=== PATIENT | male | born 1965 | race Caucasian/White ===

== ENCOUNTER 2016-07-06 08:48 | Emergency (ER) | payer OTHER ==
[~2016-07-06] VITALS: Ht 188 cm; Wt 107.2 kg
[~2016-07-06 08:48] MED LIST: ASCO10003 PO; CHOL100027 PO; MULTTAB58 PO; OXYC-643 PO; VITATAB11 PO
[2016-07-06 08:51] VITALS: TEMP 37; Ht 188 cm; Wt 107.2 kg
[2016-07-06] MEDS ORDERED: DIPHTHERIA/TETANUS/PERTUSSIS 0.5 ML SYR/VIAL IM. ONE (09:30)
--- NOTE | 2016-07-06 09:42 | DIAGNOSTIC IMAGING REPORT ---
RIGHT KNEE 3 VIEWS CLINICAL HISTORY: Right knee injury with joint effusion. COMPARISON: None FINDINGS: There is apparent depression of the lateral tibial plateau. This is probably artifactual. A large right knee joint effusion is noted. No lipohemarthrosis is identified. Joint spaces are preserved. No definite fracture is identified. IMPRESSION: Large right knee joint effusion. Apparent depression of the lateral tibial plateau is probably artifactual although a CT of the right knee could be obtained to exclude a fracture. Electronically signed by: Robi Stevenson M.D. 07/06/2016 9:41 AM Dictated Date/Time: 07/06/2016 9:39 AM
--- NOTE | 2016-07-06 10:18 | DIAGNOSTIC IMAGING REPORT ---
CT OF THE RIGHT KNEE WITHOUT CONTRAST CT DOSE: 276.18 mGy.cm CLINICAL HISTORY: Right knee pain following twisting injury. Possible tibial plateau fracture on radiographs. TECHNIQUE: Axial images of the right knee were obtained without IV contrast. Sagittal and coronal reconstructions were viewed. COMPARISON STUDY: Right knee radiographs July 06, 2016. FINDINGS: There is a large right knee joint effusion with suspected tiny lipohemarthrosis. There is an acute minimally displaced, minimally depressed fracture of the anterior aspect of the lateral tibial plateau. There is approximately 3 mm of depression. No additional fractures are identified. Joint spaces are preserved. There is minimal osteophytosis. Menisci and ligaments are suboptimally assessed by CT. IMPRESSION: 1. Acute minimally displaced, minimally depressed (3 mm) fracture of the anterior aspect of the lateral tibial plateau. 2. Large right knee joint effusion with tiny lipohemarthrosis. Electronically signed by: Robi Stevenson M.D. 07/06/2016 10:17 AM Dictated Date/Time: 07/06/2016 10:10 AM
[2016-07-06] MEDS ORDERED: OXYC1TAB3 PO (11:04)
[2016-07-06 11:23] VITALS: BP 144/88; PULSE 83; O2SAT 97
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
== END 2016-07-06 11:33 | disposition home or self-care (01) ==
LOC: C.EDB 08:49 → C.EDA 11:33
DX: S82.141A Displaced bicondylar fracture of right tibia, initial encounter for closed fracture (principal); T24.021A Burn of unspecified degree of right knee, initial encounter; T23.211A Burn of second degree of right thumb (nail), initial encounter; T23.171A Burn of first degree of right wrist, initial encounter; T22.112A Burn of first degree of left forearm, initial encounter; T23.102A Burn of first degree of left hand, unspecified site, initial encounter; T20.16XA Burn of first degree of forehead and cheek, initial encounter; X12.XXXA Contact with other hot fluids, initial encounter; X50.9XXA Other and unspecified overexertion or strenuous movements or postures, initial encounter; Y99.0 Civilian activity done for income or pay; M25.462 Effusion, left knee; F17.200 Nicotine dependence, unspecified, uncomplicated; Z23 Encounter for immunization

== ENCOUNTER → 2016-07-17 | Outpatient (CLI) | payer OTHER ==
[~2016-07-17] MED LIST changes: -OXYC-643 PO; +OXYC1TAB3 PO
--- NOTE | 2016-07-17 14:22 | DIAGNOSTIC IMAGING REPORT ---
RIGHT KNEE 4 VIEWS CLINICAL HISTORY: Follow-up tibial plateau fracture. FINDINGS: AP, internal rotated, externally rotated, and crosstable lateral views the right knee are compared to study dated 07/06/2016. Correlation is made with CT scan of the knee dated 07/06/2016. The skeletal structures are well mineralized. There is cortical irregularity and mild step-off identified along the peripheral aspect of the lateral tibial plateau, best seen on the externally rotated view. This likely corresponds to the lateral tibial plateau fracture seen on the recent CT scan. No discrete fracture line is identified. No new fracture is seen. There is only mild joint space narrowing, greatest at the patellofemoral articulation. A joint effusion has decreased in size from previous. The overlying soft tissues are normal as imaged. IMPRESSION: 1. Mild cortical irregularity along the lateral tibial plateau likely represents the subtle fracture seen on the recent CT scan. No discrete fracture line is identified on today's examination. 2. A joint effusion has decreased in size from previous. Electronically signed by: Luis M Dietrich M.D. 07/17/2016 2:21 PM Dictated Date/Time: 07/17/2016 2:12 PM
== END | disposition home or self-care (01) ==
LOC: C.RDSM 13:45
PROVIDERS: ATTEND Family Medicine
DX: T14.8 Other injury of unspecified body region (principal); X58.XXXA Exposure to other specified factors, initial encounter

== ENCOUNTER → 2016-08-14 | Outpatient (CLI) | payer OTHER ==
--- NOTE | 2016-08-14 13:11 | DIAGNOSTIC IMAGING REPORT ---
RIGHT KNEE 4 OR MORE CLINICAL HISTORY: F/U RIGHT TIBIAL PLATEAU FX Right COMPARISON STUDY: Right knee 07/17/2016. FINDINGS: Slight progressive sclerosis within the slightly depressed fracture within the anterior aspect of the lateral tibial plateau. This is consistent with interval healing. The alignment remains unchanged. No dislocation. The joint effusion has resolved. IMPRESSION: Healing lateral tibial plateau fracture. The joint effusion has resolved. Electronically signed by: Arjun Cardenas M.D. 08/14/2016 1:09 PM Dictated Date/Time: 08/14/2016 1:07 PM
== END | disposition home or self-care (01) ==
LOC: C.RDSM 12:56
PROVIDERS: ATTEND Family Medicine
DX: S82.141D Displaced bicondylar fracture of right tibia, subsequent encounter for closed fracture with routine healing (principal); X58.XXXD Exposure to other specified factors, subsequent encounter